=== PATIENT | female | born 2000 | race Caucasian/White ===

== ENCOUNTER 2024-07-20 17:53 | Emergency (ER) | payer OTHER, SELFPAY ==
[2024-07-20 18:09] VITALS: BP 116/86; PULSE 57; RESP 16; TEMP 36.4; O2SAT 100; BMI 28.1
[2024-07-20] MEDS: ONDANSETRON 4 MG/2 ML INJ IV (19:07)
[2024-07-20 19:14] LABS: Add Manual Diff / Slide Review NO; Basophils Absolute Auto 0 /uL (0-100); Basophils Percent Auto 0.5 % (0-2); Eosinophils Absolute Auto 0 /uL (0-450); Hematocrit 35.5 % (36-46); Hemoglobin 11.9 g/dL (12.0-16.0); Lymphocytes Absolute Auto 300 /uL (1100-4500); Lymphocytes Percent Auto 3.4 % (25-40); Mean Corpuscular HGB Conc 33.6 % (30-36); Mean Corpuscular Hemoglobin 30.7 PG (26-34); Mean Corpuscular Volume 91.5 fL (80-100); Monocytes Absolute Auto 0 /uL (0-900); Monocytes Percent Auto 0.4 % (3-14); Neutrophils Absolute Auto 9400 /uL (1500-7000); Neutrophils Percent Auto 95.7 % (50-75); Platelet Count 279 X10^3/uL (150-400); Red Blood Cell Count 3.89 X10^6/uL (4.0-5.2); Red Cell Distribution Width 16.1 % (11.6-14.8); White Blood Cell Count 9.9 X10^3/uL (4.5-11.0)
[2024-07-20 19:23] LABS: Alanine Aminotransferase 58 IU/L (<35); Albumin 4.4 g/dL (3.5-5.0); Albumin Globulin Ratio 1.1 (1.0-2.8); Alkaline Phosphatase 119 U/L (38-126); Aspartate Aminotransferase 69 IU/L (14-36); BUN Creatinine Ratio 20.6 (6-22); Blood Urea Nitrogen 14 mg/dL (7-17); Calcium 8.9 mg/dL (8.4-10.2); Carbon Dioxide 26 mmol/L (22-32); Chloride 101 mmol/L (98-107); Estimated Glomerular Filt Rate > 60 mL/min (>60); Globulin 3.9 g/dL (1.7-4.1); Glucose 164 mg/dL (70-99); HEMOLYSIS < 15 (0-50); Lipase 38 U/L (23-300); Potassium 3.6 mmol/L (3.4-5.1); Sodium 136 mmol/L (137-145); Total Protein 8.3 g/dL (6.3-8.2)
[2024-07-20 19:39] VITALS: PULSE 57
[2024-07-20 19:40] VITALS: BP 119/71; PULSE 51; RESP 24
[2024-07-20] MEDS: SODIUM CHLORIDE 0.9% 1,000 ML 1000 ML IV (19:41)
--- NOTE | 2024-07-20 19:57 | ED_ITS ---
HPI - Nausea/Vomiting/Diarrhea General Chief complaint: Nausea/Vomiting/Diarrhea Stated complaint: nausea due to chemo treatment began 5 days ago Time Seen by Provider: 07/20/24 19:57 Source: patient and family Mode of arrival: Wheelchair History of Present Illness HPI Narrative: 23-year-old female history of thyroid cancer currently undergoing chemotherapy presenting for nausea and vomiting. States that she just had her last chemotherapy treatment on July, states that she has been having persistent nausea and vomiting since then. States that she is having abdominal pain associated with this. States that she did try taking Zofran and Compazine but states that she threw it up. Denies any other symptoms at this time. Related Data Previous Rx's Medication Instructions Recorded prochlorperazine 25 mg rectal 25 mg CA Q12H PRN nausea and 07/20/24 suppository (Compazine) vomiting #12 ea Allergies Allergy/AdvReac Type Severity Reaction Status Date / Time magnesium AdvReac Verified 07/20/24 18:09 Quinolones AdvReac Verified 07/20/24 18:09 Review of Systems Review of Systems Narrative: General: Denies fever, chills, weight loss HEENT: Denies headache, eye drainage, eye irritation, head trauma, sore throat, voice change Cardiovascular: Denies any chest pain, palpitations, tachycardia Respiratory: Denies any shortness of breath, cough, wheeze, stridor GI/: Positive any abdominal pain, nausea, vomiting, denies diarrhea, bright red blood per rectum, melanotic stools, urinary frequency, urinary retention, dysuria, hematuria MSK: Denies any joint pain, muscle pains, swelling Skin: Denies any rashes, lesions, discoloration Neuro: Denies any headache, lightheadedness, dizziness, fainting, weakness Psych: Denies SI/HI Patient History Social History Smoking Status: Never smoker Smoking Status: Never smoker Exam Narrative Exam Narrative: General: Cooperative, well-developed, not in acute distress HEENT: Normocephalic, atraumatic, PERRLA, normal sclera, eyelids normal Neck: Active full range of motion, atraumatic Chest: Normal to inspection, negative crepitus, no overlying erythema ecchymosis Respiratory: Normal respiratory effort, not in acute respiratory distress, clear to auscultation bilaterally negative cough, wheeze, tachypnea, rhonchi, rales Cardiology: Regular rate rhythm negative gallop, murmur, rubs GI/: No tenderness to palpation, soft, non rigid, normal to inspection, exam deferred MSK: Full active range of motion in all 4 extremities, atraumatic, no tenderness to palpation of any bony prominences Skin: No rashes or lesions noted Neuro: Alert awake oriented x3, moves all 4 extremities spontaneously, cranial nerves intact, able to answer all questions appropriately follows commands appropriately Psych: Cooperative, negative suicidal or homicidal ideations Initial Vital Signs Initial Vital Signs: Vital Signs Temperature 97.6 F 07/20/24 18:09 Pulse Rate 57 L 07/20/24 18:09 Respiratory Rate 16 07/20/24 18:09 Blood Pressure 116/86 07/20/24 18:09 Pulse Oximetry 100 07/20/24 18:09 Oxygen Delivery Method Room Air 07/20/24 18:09 Course Orders Ordered: ED Orders 07/20/24 19:02 Complete Blood Count AUTO DIFF Stat Comprehensive Metabolic Panel Stat Lipase Stat Sodium Chloride (Normal Saline 0.9%) 1,000 mls @ 1,000 mls/hr IV BOLUS ONE Stop: 07/20/24 20:29 Last Admin: 07/20/24 19:41 Dose: 1,000 mls/hr Documented By: RENÉ Ondansetron HCl (Ondansetron 4 Mg/2 Ml Inj) 4 mg IV NOW PRN PRN Reason: Nausea And Vomiting Last Admin: 07/20/24 19:07 Dose: 4 mg Documented By: JUNAID Ondansetron HCl (Ondansetron 4 Mg Odt) 4 mg PO NOW PRN PRN Reason: Nausea And Vomiting Vital Signs Vital signs: Vital Signs - 8 hr 07/20/24 18:09 Temperature 97.6 F Pulse Rate 57 L Respiratory Rate 16 Blood Pressure 116/86 Pulse Oximetry 100 Oxygen Delivery Method Room Air MDM - Nausea/Vomiting/Diarrhea Differential Diagnosis Differential diagnosis: Likely other (Drug induced nausea vomiting, electrolyte abnormality) Lab Data 07/20/24 19:02 07/20/24 19:02 Labs: Lab Results 07/20/24 Range/Units 19:02 WBC 9.9 (4.5-11.0) X10^3/uL RBC 3.89 L (4.0-5.2) X10^6/uL Hgb 11.9 L (12.0-16.0) g/dL Hct 35.5 L (36-46) % MCV 91.5 (80-100) fL MCH 30.7 (26-34) PG MCHC 33.6 (30-36) % RDW 16.1 H (11.6-14.8) % Plt Count 279 (150-400) X10^3/uL Neut % (Auto) 95.7 H (50-75) % Lymph % (Auto) 3.4 L (25-40) % [place] % (Auto) 0.4 L (3-14) % Eos % (Auto) 0.0 L (2-4) % Baso % (Auto) 0.5 (0-2) % Neut # (Auto) 9400 H (2937-5696) /uL Lymph # (Auto) 300 L (3635-7537) /uL [place] # (Auto) 0 (0-900) /uL Eos # (Auto) 0 (0-450) /uL Baso # (Auto) 0 (0-100) /uL Sodium 136 L (137-145) mmol/L Potassium 3.6 (3.4-5.1) mmol/L Chloride 101 (98-107) mmol/L Carbon Dioxide 26 (22-32) mmol/L BUN 14 (7-17) mg/dL Creatinine 0.68 (0.52-1.04) mg/dL Estimated GFR > 60 (>60) mL/min BUN/Creatinine Ratio 20.6 (6-22) Glucose 164 H (70-99) mg/dL Calcium 8.9 (8.4-10.2) mg/dL Total Bilirubin 1.0 (0.2-1.3) mg/dL AST 69 H (14-36) IU/L ALT 58 H (<35) IU/L Alkaline Phosphatase 119 (38-126) U/L Total Protein 8.3 H (6.3-8.2) g/dL Albumin 4.4 (3.5-5.0) g/dL Globulin 3.9 (1.7-4.1) g/dL Albumin/Globulin Ratio 1.1 (1.0-2.8) Lipase 38 (23-300) U/L [facility] Narrative Medical decision making narrative: 23-year-old female history of thyroid cancer currently undergoing chemo last treatment was on July 15, 2024 presenting for nausea and vomiting with associated abdominal pain secondary to this, states that she tried taking her Zofran and Compazine but threw it up therefore decided come into the ED for further evaluation treatment. Patient without any electrolyte abnormality no leukocytosis patient received fluids and antiemetics here with improvement of symptoms she was instructed follow up with primary care and her oncology team she verbalized understanding of this agrees to being discharged home with outpatient follow up Discharge Plan Departure Patient Disposition: Home Clinical Impression: Drug-induced nausea and vomiting Activity Restrictions/Additional Instructions: Please follow up with your oncology and primary care doctor Please read the discharge instructions sheet carefully and bring all papers to all doctor follow-up visits, as it may contain information that your doctor may want to see. Disease processes change and evolve, if your symptoms worsen or if you develop any new symptoms that are concerning to you please return for evaluation. Your evaluation today does not show any evidence of any life- threatening/serious illnesses requiring admission to the hospital or surgery. Please follow-up with your doctor for re-evaluation in approximately 1 day. Seek immediate medical attention for any worrisome symptoms. *If you do not have a primary care provider please contact the [facility] Resource line at [phone]. They will ask some questions about your medical history and help get you set up with a doctor in the community. Prescriptions: New prochlorperazine [Compazine] 25 mg suppository 25 mg CA Q12H PRN (Reason: nausea and vomiting) Qty: 12 0RF Referrals: Miscellaneous,Doctor, [Primary Care Provider] - Stand Alone Forms: Patient Portal/API/Survey
[2024-07-20 20:00] VITALS: BP 108/70; PULSE 54
[2024-07-20 20:30] VITALS: BP 115/78; PULSE 51; RESP 17
== END 2024-07-20 20:41 | disposition home or self-care (01) ==
PROVIDERS: Emergency Provider Student in an Organized Health Care Education/Training Program
DX: R11.2 Nausea with vomiting, unspecified (principal)
CPT/HCPCS: 36415; 80053; 83690; 85025; 96361; 96374; 99284; J2405